=== PATIENT | female | born 1990 | race Caucasian/White ===

== ENCOUNTER 2023-06-23 08:50 | Emergency (ER) | payer OTHER, SELFPAY ==
[2023-06-23 09:03] VITALS: BP 110/67; PULSE 57; RESP 16; TEMP 36.7; O2SAT 100
--- NOTE | 2023-06-23 09:07 | ED.SKABFB ---
HPI - Skin/Abscess/Foreign Bdy General Chief complaint: Skin/Abscess/Foreign Body Stated complaint: Lip Irritation Time Seen by Provider: 06/23/23 09:07 Source: patient Mode of arrival: ambulatory Limitations: no limitations History of Present Illness HPI narrative: 32 y/o female presented for c/o cold sore to upper lip, onset yesterday. Took 2 valtrex last night, unsure of dose. Denies any other locations of skin lesions. Denies recent illness. States she has had cold sores since age 1. Related Data Home Medications Medication Instructions Recorded Confirmed medroxyprogesterone 150 mg/mL 150 mg IM [id number] 06/23/23 06/23/23 intramuscular suspension (Depo-Provera) Allergies Allergy/AdvReac Type Severity Reaction Status Date / Time No Known Allergies Allergy Mild Verified 06/23/23 08:59 Review of Systems Review of Systems: CONSTITUTIONAL: Denies body aches, fever, chills, or sweats. EYES: Denies visual changes, redness, or discharge. ENT: Reports cold sore to lip Denies rhinorrhea, congestion CARDIOVASCULAR: Denies chest pain, palpitations, or edema. RESPIRATORY: Denies cough or dyspnea. GASTROINTESTINAL: Denies abdominal pain, nausea, vomiting, or diarrhea. SKIN: Denies rash or wounds MUSCULOSKELETAL: Denies back pain, joint pain, or myalgia. NEUROLOGIC: Denies headache, numbness, tingling, or weakness. [facility] Past Medical History Medical History (Updated 06/23/23 @ 09:17 by Shilpa Santillan APRN) No pertinent past medical history Family History Family History Grandparent Hypertension Family history of coronary artery disease Social History Social History Smoking status: Never smoker Alcohol intake: never Comments At time of signature, I have reviewed and agree with nursing past medical, surgical, social and family history unless otherwise noted. Please see nursing chart for further information. There is no relevant family history pertinent to the presenting complaint Exam Narrative: GENERAL: Well-appearing HEAD: Normocephalic, atraumatic. EYES: conjunctivae clear, and EOMI. ENT: Mucous membranes moist. Upper lip with vesicular lesion <0.5cm diameter, no active drainage; not on vermilion border; Oropharynx without edema, erythema or lesions. NECK: Supple. No lymphadenopathy CHEST: Clear to auscultation. HEART: Regular rate and rhythm. SKIN: Warm, dry. NEURO: Alert and oriented x3. Course Course Emergency Course: Patient is aware of diagnosis, understands and agrees to treatment plan. Anticipatory guidance given. Patient agrees to follow-up as directed and is aware of reasons to seek care at the emergency department. Portions of this record may have been created with voice recognition software Level of Care: Express Care Visit Vital Signs Vital signs: Vital Signs Temperature 98.1 F 06/23/23 09:03 Pulse Rate 57 L 06/23/23 09:03 Respiratory Rate 16 06/23/23 09:03 Blood Pressure 110/67 06/23/23 09:03 Pulse Oximetry 100 06/23/23 09:03 Oxygen Delivery Room Air 06/23/23 09:03 Temperature 98.1 F 06/23/23 09:03 Pulse Rate 57 L 06/23/23 09:03 Respiratory Rate 16 06/23/23 09:03 Blood Pressure 110/67 06/23/23 09:03 Pulse Oximetry 100 06/23/23 09:03 Oxygen Delivery Room Air 06/23/23 09:03 Reviewed MDM - Skin/Abscess/Foreign Bdy MDM Narrative Medical decision making narrative: Discussed physical exam findings and rx. Advised supportive measures and signs/symptoms to go to the ER. Pt is appropriate for outpt treatment and f/u. Differential Diagnosis Differential diagnosis: Likely abscess of skin or subcutaneous tissue, viral exanthem, urticaria, herpes zoster, allergic reaction to drug, cellulitis, impetigo and contact dermatitis Discharge Plan Discharge Clinical Impression: Herpes labialis Pat
== END 2023-06-23 09:16 | disposition home or self-care (01) ==
PROVIDERS: Emergency Provider Nurse Practitioner Family
DX: B00.1 Herpesviral vesicular dermatitis (principal)
CPT/HCPCS: 99213; G0463

== ENCOUNTER 2024-01-19 18:09 | Emergency (ER) | payer OTHER, SELFPAY ==
[2024-01-19 18:17] VITALS: BP 102/67; PULSE 68; RESP 16; TEMP 36.4; O2SAT 100
--- NOTE | 2024-01-19 18:24 | ED.SKABFB ---
HPI - Skin/Abscess/Foreign Bdy General Chief complaint: Skin/Abscess/Foreign Body Stated complaint: Rash Time Seen by Provider: 01/19/24 18:21 Source: patient and RN notes reviewed Mode of arrival: ambulatory Limitations: no limitations History of Present Illness HPI narrative: Patient presents today complaining of burning and itching to her chin that started yesterday with tiny blisters that appear last night. She has been applying Vaseline. Believe she is having a herpes outbreak. Related Data Home Medications Medication Instructions Recorded Confirmed medroxyprogesterone 150 mg/mL 150 mg IM [id number] 06/23/23 01/19/24 intramuscular suspension (Depo-Provera) Allergies Allergy/AdvReac Type Severity Reaction Status Date / Time No Known Allergies Allergy Mild Verified 01/19/24 18:10 Review of Systems Review of Systems: CONSTITUTIONAL: Denies body aches, fever, chills, or sweats. EYES: Denies visual changes, redness, or discharge. ENT: Denies rhinorrhea, congestion, sore throat, or otalgia. CARDIOVASCULAR: Denies chest pain, palpitations, or edema. RESPIRATORY: Denies cough or dyspnea. GASTROINTESTINAL: Denies abdominal pain, nausea, vomiting, or diarrhea. GENITOURINARY: Denies dysuria or hematuria. SKIN: + rash to chin. MUSCULOSKELETAL: Denies back pain, joint pain, or myalgia. NEUROLOGIC: Denies headache, numbness, tingling, or weakness. PSYCH: Denies depression or anxiety. PMFSH Past Medical History Medical History No pertinent past medical history Family History Family History Grandparent Hypertension Family history of coronary artery disease Social History Social History Smoking status: Never smoker Alcohol intake: never Comments At time of signature, I have reviewed and agree with nursing past medical, surgical, social and family history unless otherwise noted. Please see nursing chart for further information. There is no relevant family history pertinent to the presenting complaint Exam Narrative: GENERAL: Well-appearing, well-nourished, and in no acute distress. HEAD: Normocephalic, atraumatic. EYES: EOMI. No redness or drainage. Conjunctivae normal. ENT: Mucous membranes pink and moist. NECK: Normal AROM. CHEST: No respiratory distress. EXTREMITIES: Normal range of motion. No edema. SKIN: Warm, dry. Capillary refill normal. Normal skin turgor. Cluster of tiny fluid vesicles the chin measuring approximately 1 cm round. No surrounding erythema or induration. NEURO: No focal deficits. Alert and oriented x3. Gait steady. PSYCH: Normal affect. No signs of depression or anxiety. Course Course Level of Care: Express Care Visit Vital Signs Vital signs: Vital Signs Temperature 97.5 F L 01/19/24 18:17 Pulse Rate 68 01/19/24 18:17 Respiratory Rate 16 01/19/24 18:17 Blood Pressure 102/67 01/19/24 18:17 Pulse Oximetry 100 01/19/24 18:17 Oxygen Delivery Room Air 01/19/24 18:17 Temperature 97.5 F L 01/19/24 18:17 Pulse Rate 68 01/19/24 18:17 Respiratory Rate 16 01/19/24 18:17 Blood Pressure 102/67 01/19/24 18:17 Pulse Oximetry 100 01/19/24 18:17 Oxygen Delivery Room Air 01/19/24 18:17 Reviewed MDM - Skin/Abscess/Foreign Bdy MDM Narrative Medical decision making narrative: Patient has been diagnosed with herpes simplex. Prescription for Valtrex sent to pharmacy. Anticipatory guidance given. Differential Diagnosis Differential diagnosis: Likely abscess of skin or subcutaneous tissue, viral exanthem, cellulitis, impetigo, contact dermatitis and other (Herpes simplex) Critical Care Time Critical Care Time Critical Care Time: No Discharge Plan Discharge Clinical Impression: Herpes simplex infection of skin Patient Disposition: H
== END 2024-01-19 18:30 | disposition home or self-care (01) ==
PROVIDERS: Emergency Provider Nurse Practitioner
DX: B00.9 Herpesviral infection, unspecified (principal)
CPT/HCPCS: 99213; G0463